=== PATIENT | male | born 1960 | race Caucasian/White ===

== ENCOUNTER 2019-12-16 22:48 | Emergency (ER) | payer SELFPAY ==
[~2019-12-16] VITALS: Ht 182.9 cm; Wt 92.0 kg
[2019-12-16] MEDS ORDERED: ZIPRASIDONE 20 MG INJ IM ONE ×2 (22:56→23:00)
[2019-12-16] MEDS ORDERED: LIDOCAINE 1%, 10ML INFIL ONE (23:00)
[2019-12-16] MEDS ORDERED: DIPH,PERTUSS(ACELL),TET VAC/PF 0.5 ML IM-VACC ONE (23:00)
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
--- NOTE | 2019-12-16 23:32 | NUR ---
PT TO IMAGING VIA [employer] AT THIS TIME.
[2019-12-16] MEDS ORDERED: LIDOCAINE 1%-EPI 1:100K, 20ML ONE (23:49)
--- NOTE | 2019-12-17 00:54 | NUR ---
BREAK RN: PT RESTING IN GURNEY, ETOH ODOR NOTED, SPEEH SLURRED, GIVEN WARM BLANKET FOR COMFORT, VSS, WCTM.
--- NOTE | 2019-12-17 03:11 | NUR ---
pt ambulates to restroom with steady gait. pt assisted back to [facility] and pt requesting to sleep for one hour.
--- NOTE | 2019-12-17 04:50 | NUR ---
Note toan in EDM - 12/17/19 at 0519 by DAVID BREATHING TREATMENT ADMINISTERED PER JUL. PIV ACCESS X 3 ATTEMPTED WITH NO SUCCESS. PEPE MORRIS, TO BS WITH US MACHINE TO ATTEMPT US PIV ACCESS AT THIS TIME.
[2019-12-17 05:02] VITALS: BP 122/60
== END 2019-12-17 05:05 | disposition home or self-care (01) ==
LOC: ED 12-17 04:45
DX: S00.81XA Abrasion of other part of head, initial encounter (principal); S09.90XA Unspecified injury of head, initial encounter; G31.2 Degeneration of nervous system due to alcohol; W19.XXXA Unspecified fall, initial encounter; Y93.89 Activity, other specified; Y92.488 Other paved roadways as the place of occurrence of the external cause; Y99.8 Other external cause status
CPT/HCPCS: 70450; 72125; 90471; 90715; 96372; 99285; J3486